=== PATIENT | female | born 1970 | race Caucasian/White ===

== ENCOUNTER 2017-02-05 06:45 | Day surgery (SDC) | payer OTHER ==
[~2017-02-05 06:45] MED LIST: ADVIL200 MG; FETZIMA40 M1 PO; GLUCOPHAGE500 M3 PO; PEPTO-BISM262 MG/15; PHENERGAN25 MG PO; SYNTHROID125 MCG; SYNTHROID175 MC1 PO; TUMS500 MG; WELLBUTRIN75 MG
[2017-02-05] MEDS ORDERED: IBUPROFEN800 M1 PO (18:49)
[2017-02-05] MEDS ORDERED: FLAGYL500 M1 PO (18:50)
[2017-02-05] MEDS ORDERED: TERAZOL 745 G1 VG (18:51)
== END 2017-02-05 20:20 ==
LOC: SHSC 06:45 → ORW 09:06 → PACU 11:26 → OBGE 12:30
PROC: 0UT94ZZ Resection of Uterus, Percutaneous Endoscopic Approach (ICD-10-PCS; principal; 2017-02-05)
PROC: 0UTC4ZZ Resection of Cervix, Percutaneous Endoscopic Approach (ICD-10-PCS; 2017-02-05)
PROC: 0UT74ZZ Resection of Bilateral Fallopian Tubes, Percutaneous Endoscopic Approach (ICD-10-PCS; 2017-02-05)
PROC: 8E0W4CZ Robotic Assisted Procedure of Trunk Region, Percutaneous Endoscopic Approach (ICD-10-PCS; 2017-02-05)
DX: D25.1 Intramural leiomyoma of uterus (principal); N73.6 Female pelvic peritoneal adhesions (postinfective); N83.8 Other noninflammatory disorders of ovary, fallopian tube and broad ligament; R42 Dizziness and giddiness; F41.9 Anxiety disorder, unspecified; F32.9 Major depressive disorder, single episode, unspecified; F17.210 Nicotine dependence, cigarettes, uncomplicated; E89.0 Postprocedural hypothyroidism; R73.03 Prediabetes; Z79.84 Long term (current) use of oral hypoglycemic drugs; Z79.899 Other long term (current) drug therapy; Z88.5 Allergy status to narcotic agent; Z91.011 Allergy to milk products; Z91.012 Allergy to eggs; Z90.49 Acquired absence of other specified parts of digestive tract; Z98.51 Tubal ligation status; Z98.890 Other specified postprocedural states
CPT/HCPCS: J0690; J1885; J3010; J7030